=== PATIENT | male | born 1965 | race Caucasian/White ===

== ENCOUNTER 2022-03-08 10:11 | Emergency (ER) | payer BC, SELFPAY ==
[2022-03-08] VITALS (9 sets, daily range): BP systolic 135–142; BP diastolic 99–101; PULSE 72–98; RESP 18; TEMP 36.1; O2SAT 94–98; BMI 29.3
--- NOTE | 2022-03-08 11:49 | CRLHL7_ITS ---
For Patients: As a result of the Century Cures Act, medical imaging exams and procedure reports are released immediately into your electronic medical record. You may view this report before your referring provider. If you have questions, please contact your health care provider. INDICATION: Postop epigastric pain status post Jeremias fundoplication. TECHNIQUE: CT abdomen and pelvis acquired with 99 cc Isovue 3 7 IV contrast. COMPARISON: None. FINDINGS: Lower chest: Unremarkable. Liver: Unremarkable. Normal in size and attenuation. No suspicious masses. Gallbladder and bile ducts: Unremarkable. No stones or inflammation. No biliary dilatation. Pancreas: Unremarkable. No mass or inflammation. Spleen: Unremarkable. Normal in size. No masses. Adrenal glands: Unremarkable. No nodules. Kidneys: Unremarkable. No suspicious masses, stones, or hydronephrosis. GI tract: There are normal and expected postoperative changes from a Jeremias fundoplication. No postoperative complication evident. Entire GI tract including the distal esophagus and stomach are normal in caliber and appearance. Normal appendix. Vasculature: Abdominal aorta is normal in caliber. Mesenteric arteries are patent. Lymph nodes: No lymphadenopathy. Peritoneum/Abdominal Wall: Unremarkable. No sign of mass or infiltration. No free air or significant free fluid. Pelvis: Unremarkable. Bones: Unremarkable for age. IMPRESSION: Normal postoperative changes from a Jeremias fundoplication. No postoperative complications or other acute or specific finding to explain epigastric pain. Please note that all CT scans at this facility use dose modulation, iterative reconstruction, and/or weight-based dosing when appropriate to reduce radiation dose to as low as reasonably achievable. Dictated by Edgardo Baltazar MD @ 03/08/2022 12:53:22 PM (Electronically Signed)
[2022-03-08] MEDS: 0.9 % SODIUM CHLORIDE 1000 ml 1,000 ML IV (12:25)
--- OUTSIDE RECORDS SUMMARY | 2022-03-08 12:25 | XMS_ITS | Clinical Summary ---
:1965 Author Organization [facility] [place] [address] Care Team Providers Name Role Phone Valente Jean MD Primary Care Provider Allergies Active Allergy Reactions Severity Noted Date Comments Ciprofloxacin Throat Swelling/Closing High 11/25/2012 Medications Medication Sig Dispensed Refills Start End Status Date Date atorvastatin (LIPITOR) Take 1 Tablet 90 Tablet 3 08/25/19 Active 20 mg (20 mg) by 22 tabletIndications: mouth at Other hyperlipidemia bedtime. hydroCHLOROthiazide Take 1 Tablet 90 Tablet 3 11/22/19 Active (HCTZ) 25 mg (25 mg) by 22 tabletIndications: mouth once Essential hypertension daily. lisinopriL (PRINIVIL; Take 10 mg by 0 Active ZESTRIL) 10 mg tablet mouth once daily in the evening. omeprazole (PRILOSEC) Take 40 mg by 0 Active 40 mg Delayed-Release mouth two capsule times daily. sertraline (ZOLOFT) Take 150 mg by 0 Active 100 mg tablet mouth once daily. ondansetron (ZOFRAN Place 1-2 30 Tablet 0 02/15/20 Active ODT) 4 mg Tablets (4-8 22 disintegrating mg) on the tabletIndications: tongue every 6 Paraesophageal hiatal hours if hernia needed for Nausea/Vomitin g for up to 30 doses. oxyCODONE (ROXICODONE) Take 1 Tablet 5 Tablet 0 02/18/20 Active 5 mg immediate release (5 mg) by 22 tabletIndications: mouth every 4 Hiatal hernia hours if needed for Pain. methylPREDNISolone Take by mouth 21 Tablet 0 03/03/20 Active (Medrol, Tree,) 4 mg as instructed 22 tabletIndications: per packaging. Post-operative state omeprazole (PRILOSEC) 40 mg twice 180 Capsule 3 08/23/1902/04 Discontinued 40 mg Delayed-Release daily 022 (Pharmacist capsuleIndications: change per Iron deficiency medi cation anemia, unspecified history iron deficiency anemia (E-cancel not type, Hematochezia, sent)) Esophagitis, Polyp of colon, unspecified part of colon, unspecified type medication order 1`06/26/2015 1 unit 0 09/23/19 D iscontinued composerIndications: AHI-12; 022 (Pharmacist CASSIDY (obstructive sleep diagnosis change per apnea) obstructive medicati on sleep apnea history MRD #1 (E-cancel not sent)) sertraline (ZOLOFT) Take 1.5 135 tablet. 3 11/05/19 Discontinued 100 mg Tablets (150 22 022 (Pharma cist tabletIndications: mg) by mouth change per Depression with at bedtime. me dication anxiety history (E-cancel not sent)) lisinopriL (PRINIVIL; Take 1 Tablet 90 Tablet 3 12/17/1902/04 Discontinued ZESTRIL) 10 mg (10 mg) by 022 (Pha rmacist tabletIndications: mouth once change per Essential hypertension daily. medication history (E-cancel not sent)) oxyCODONE (ROXICODONE) Take 1 Tablet 15 Tablet 0 02/15/2020/06 Discontinued 5 mg immediate release (5 mg) by 022 (Reorder tabletIndications: mouth every 6 (E-cancel not Paraesophageal hiatal hours if sent)) hernia needed for Pain. Active Problems Problem Noted Date Other hyperlipidemia 08/24/2021 Adenomatous colon polyp 12/07/2020 Overview: Colonoscopy 12/2020 polyp, repeat in 7 ye ars Essential hypertension 07/31/2018 Chronic GERD 07/31/2018 Overview: EGD 12/202021Grade 3 reflux esophagitis wit h esophageal ulcer, increase omeprazole to 40 mg/day Depression with anxiety 07/31/2018 CASSIDY, 04/25/2016, AHI 12.4 05/02/2016 Insomnia, idiopathic 05/02/2016 Other chest pain Paraesophageal hiatal hernia Encounters Date Type Specialty Care Team Description 02/21/2022 Telemedicine Riana Pastrana Follow Up WISAM Morse 02/21/2022 Travel 02/18/2022 Nurse Triage Valente Jean Face Swelling MD Pedro 02/17/2022 Orders Only Riana Pastrana <No scans jodie ched> WISAM Morse 02/15/2022 Telephone Riana Pastrana Follow Up WISAM Morse 02/14/2022 Anesthesia Event Cortes Cummins MD Sarpal, Edwar Moreno MD 02/14/2022 Surgery Nettie Grady, ROBOTIC TONY SETHI MD PARAESOPHAGEAL HIATAL HERNIORRHAPHY w ith toupet fundopli cation 02/14/2022 Hospital Encounter Nettie Grady, Paraes ophageal hiatal MD hernia (Primary Dx) 02/14/2022 Telephone Nettie Grady, RDC-surgical followup MD 02/13/2022 Travel 02/10/2022 Nurse/Clinic Staff Only Test ing (COVID-19 preop/) 02/10/2022 Travel 02/06/2022 Orders Only Lab, [facility] 02/06/2022 Travel 2022 Preop Visit Valente Jean Pre-Op Exam MD Pedro (Paraesophageal Hiatal Herniorrhaphy, ANW, Dr. Olegario Grady on 02/14/22.) 2022 Travel 01/17/2022 Telephone Nettie Grady, Form (FMLA p [employer]ry[employer] CUELLAR complete) 12/30/2021 Telephone Valente Jean Results MD Pedro 12/29/2021 Procedure Only Cardiac, [facility] Nurse Diagnostic Test ing (Pl[facility]... 12/29/2021 Travel 12/16/2021 Office Visit Valente Jean Medication Ma nagement (3 MD Pedro week follow up for blood pressure); [facility] cation List Update (Wisam sarabia requests remova l of senna, sleep gamboa pplies, cyclobenzaprine ) 12/16/2021 Travel from Last 3 Months Immunizations Name Administration Dates Next Due COVID-19 vaccine (Moderna 100mcg/0.5mL) 07/08/2020, 06/10/19 21 PF, MDV Hepatitis B (Adult) 09/14/2006, 04/27/2006, 03/28/2006 Influenza RIV4 (Age 18+ Years) PRESERV 03/14/2021 FREE Influenza, IIV3 (Age >=3 years) 02/19/2016 Influenza, IIV4 2022 Influenza, IIV4 (=>6mos) MDV 03/05/2018 Family History Medical History Relation Name Comments Heart attack Brother Michael Arthritis Father hip and knee rep lacement Heart attack Maternal Uncle Cancer-ovarian Mother of Ovarian cancer at 63 Stroke Paternal Grandfather Relation Name Status Comments Brother Michael Father Maternal Uncle Mother (Age 63) Paternal Grandfather Social History Tobacco Use Types Packs/Day Years Used Date Never Smoker Smokeless Tobacco: Current User Chew Tobacco Cessation: Ready to Quit: No; Co unseling Given: Yes Alcohol Use Standard Drinks/Week Comments Yes 8 (1 standard drink = 0.6 oz pure alcoho l) 8-10 beers a week Alcohol Habits Answer Date Recorded How often do you have a drink containing alcohol? Not asked How many drinks containing alcohol do you have on a Not aske d typical day when you are drinking? How often do you have six or more drinks on one Not asked occasion? Comment: 8-10 beers a week 11/25/2012 Sex Assigned at Date Recorded Not on file COVID-19 Exposure Response Date Recorded In the last 10 days, have you been in contact with No / Unsu re 02/21/2022 8:54 AM CDT someone who was confirmed or suspected to have Coronavirus/COVID-19? Obstetrics History Last Filed Vital Signs Vital Sign Reading Time Taken Comments Blood Pressure 155/90 02/14/2022 5:30 PM CDT Pulse 82 02/14/2022 5:45 PM CDT Temperature 36 ??C (96.8 ??F) 02/14/2022 5:30 PM CDT Respiratory Rate 16 02/14/2022 5:30 PM CDT Oxygen Saturation 95% 02/14/2022 5:45 PM CDT Inhaled Oxygen Concentration - - Weight 94.8 kg (209 lb) 02/14/2022 9:00 AM CDT Height 177.8 cm (5' 10) 02/14/2022 9:00 AM CDT Body Mass Index 29.99 02/14/2022 9:00 AM CDT Plan of Treatment Health Maintenance Due Date Last Done Comments Tdap 1978 Tetanus booster 1987 Zoster (shingles) series for age 0902/01/2017 50+ (1 of 2) COVID-19 vaccine series (4 - 06/07/2021 04/12/2021, 021, Booster for Moderna series) 06/10/2020 Depression screening for age 12+ 11/04/2022 11/04/2021, 04/2021, 09/24/2019, Additional history exists BMI (ht and wt on same day) for 2023 2022, 08/05, age 18+ 07/31/2018, Additional history exists Lipids for age 45-75 2027 2022, 08/22/2021, 08/27/2020, Additional history exists Colonoscopy through age 75 12/06/2030 12/06/2020, Hepatitis C screening for age Completed 11/17/2021 18-79 Influenza for age 50-64 Completed 2022, 03/14/2021, 03/05/2018, Additional history exists Procedures Procedure Name Priority Date/Time Associated Comments Diagnosis ENDOTRACHEAL TUBE Routine 02/14/2022 12:11 Result s for this PM CDT procedure are i n the results section. ENDOTRACHEAL TUBE Routine 02/14/2022 12:11 Result s for this PM CDT procedure are i n the results section. OR IMAGE CAPTURE Routine 02/14/2022 11:48 AM CDT ROBOTIC ASSISTED Tier 3 02/14/2022 10:40 Esophagitis PARAESOPHAGEAL HIATAL AM CDT HERNIORRHAPHY XI Case Notes BOP vs outpatient surgery (p t lives 1 hr away) SCAN-CARDIAC STRIP 02/14/2022 12:00 Resul ts for this AM CDT procedure are i n the results section. COVID 19 Routine 02/10/2022 4:00 PM Pre-op exam Results f or this CDT procedure are i n the results section. COVID 19 COLLECTION Routine 02/10/2022 4:00 PM Pre-op exam Re sults for this CDT procedure are i n the results section. LIPID PANEL W REFLEX Routine 2022 4:49 PM Other hyperlip idemia Results for this MEASURED LDL CDT procedure are i n the results section. CBC WITH AUTO Routine 2022 4:49 PM Preoperative general Results for this DIFFERENTIAL CDT physical examination procedu re are in the results section. CBC WITH AUTO Routine 2022 4:49 PM Preoperative general Results for this DIFFERENTIAL CDT physical examination procedu re are in the results section. BASIC METABOLIC Routine 2022 4:49 PM Essential hypertens ion Results for this PANEL CDT procedure are i n the results section. GA CV STRS TST Routine 12/29/2021 12:00 Essential hyper tension Results for this XERS&/OR RX CONT ECG AM CDT Chest press ure procedure are in W/SI&R Fam hx-ischem heart the resu lts disease section. BASIC METABOLIC Routine 12/16/2021 10:14 Essential hypertensio n Results for this PANEL AM CDT procedure are i n the results section. from Last 3 Months Results HCHG TUBE PR1, HCHG STYLET PR1 (02/14/2022 12:11 PM CDT) Narrative Mychal Crow Jr., CRNA - 02/14/2022 12:11 PM CDT Mychal Crow Jr., CRNA ? 02/14/2022 12:19 PM Procedure: ETT Patient location during procedure: OR ETT Properties Final Technique: rapid sequence inductio n, cricoid pressure and direct laryngoscopy Type: straight Location: oral Cuffed: yes Tube Size: 7.5 mm Stylet: yes Laryngoscope Blade: Mac Blade Size: 4 Cormack-Lehane Grade View: 1 Insertion Attempts: 1 Placement Verification: auscultation, en d tidal CO2 and symmetrical chest wall movement Assessment: pharynx clear, atraumatic an d dentition unchanged Secured at: 22 Measured From: lips Difficulty: 0 (not difficult) Electronically signed by Keshav Yanez CRNA ? Edwar Garcia MD ANESTHESIA PX NOTE ORDERABLE S SCAN-CARDIAC STRIP (02/14/2022 12:00 AM CDT) Narrative 02/14/2022 12:00 AM CDT This result has an attachment that is no t available. Ordered by an unspecified provider. Other Clinical Staff OTHER COVID 19 (02/10/2022 4:00 PM CDT) Analysis Performed At [facility] Time Signature COVID 19 Negative Negative 02/11/2022 [facility] 7:38 PM CDT [facility] Specimen Anatomical Location / Collection Method Collection Cheko e Received Time (Source) Laterality / Volume Other SPECIMEN FROM Non-Blood / 02/10/2022 4:00 02/11/2022 NASOPHARYNGEAL Unknown PM CDT 11:22 AM CDT STRUCTURE / Unknown Narrative [facility] LABORATORY-CENTRAL LABORAT ORY - 02/11/2022 7:38 PM CDT All PCR tests are subject to false negative result due to variability in viral load and collection te chnique. A negative result does not rule out a SARS-CoV-2 infection. Clinical correlation required. This test has been authorized by FDA und er an Emergency Use Authorization (EUA). This test is only authorized for the duration of time the declaration that circumstances exist justifying the authorizati on of the emergency use of in vitro diag nostic tests for detection of SARS-CoV-2 virus and/or diagnosis of COVID-19 infection under section 564(b)(1) of the Act, 21 U.S.C. 360bbb-3(b) (1), unless the authorization is terminated or revoked sooner. Nettie Grady MD MICROBIOLOGY Performing Organization Address City/State/ZIP Code Phon e Number [facility] [address] [place] [address] LABORATORY-CENTRAL 2000 LABORATORY COVID 19 COLLECTION (02/10/2022 4:00 PM CDT) [facility] Method Time Signature TESTING [facility] 02/11/2022 [facility] LABORATORY Laboratory 11:29 AM LABORATORY-CE CDT NTRAL LABORATORY Comment: Specimen submitted to [facility] Laboratory for testing. Specimen Anatomical Location / Collection Method Collection Cheko e Received Time (Source) Laterality / Volume Other SPECIMEN FROM Non-Blood / 02/10/2022 4:00 02/10/2022 4:06 NASOPHARYNGEAL Unknown PM CDT PM CDT STRUCTURE / Unknown Nettie Grady MD SEND OUTS Performing Organization Address City/State/ZIP Code Phon e Number [facility] [address] [place] [address] LABORATORY-CENTRAL 2000 LABORATORY (ABNORMAL) CBC WITH AUTO DIFFERENTIAL (2022 4:49 PM CDT) [facility] Method Time Signature WHITE BLOOD 9.6 4.5 - 2022 [facility] COUNT 11.0 4:56 PM CDT [facility]/ CLINIC mm RED BLOOD COUNT 5.06 4.30 - 2022 [facility] 5.90 4:56 PM CDT [facility] CLINIC HEMOGLOBIN 14.7 13.5 - 2022 [facility] 17.5 g/dL 4:56 PM CDT [facility] HEMATOCRIT 43.0 37.0 - 2022 [facility] 53.0 % 4:56 PM CDT [facility] MCV 85 80 - 100 2022 [facility] fL 4:56 PM CDT [facility] MCH 29.1 26.0 - 2022 [facility] 34.0 pg 4:56 PM CDT [facility] MCHC 34.2 32.0 - 2022 [facility] 36.0 g/dL 4:56 PM CDT [facility] RDW 17.6 (H) 11.5 - 2022 [facility] 15.5 % 4:56 PM CDT [facility] PLATELET COUNT 228 140 - 440 2022 [facility] thou/cu 4:56 PM CDT [facility] CLINIC MPV 10.0 6.5 - 2022 [facility] 11.0 fL 4:56 PM CDT [facility] % NEUT 74.4 % 2022 [facility] 4:56 PM CDT [facility] % LYMPH 15.7 % 2022 [facility] 4:56 PM CDT [facility] % MONO 7.0 % 2022 [facility] 4:56 PM CDT [facility] % EOS 2.5 % 2022 [facility] 4:56 PM CDT [facility] % BASO 0.4 % 2022 [facility] 4:56 PM CDT [facility] ABSOLUTE 7.1 (H) 1.7 - 7.0 2022 [facility] NEUTROPHILS thou/cu 4:56 PM CDT [facility] CLINIC ABSOLUTE 1.5 0.9 - 2.9 2022 [facility] LYMPHOCYTES thou/cu 4:56 PM CDT [facility] ABSOLUTE 0.7 <0.9 2022 [facility] MONOCYTES thou/cu 4:56 PM CDT [facility] CLINIC ABSOLUTE 0.2 <0.5 2022 [facility] EOSINOPHILS thou/cu 4:56 PM CDT [facility] ABSOLUTE 0.0 <0.3 2022 [facility] BASOPHILS thou/cu 4:56 PM CDT [facility] Specimen Anatomical Collection Method / Collection Time Recei magdaleno Time (Source) Location / Volume Laterality Blood BLOOD SPECIMEN / Venipuncture / 2022 4:49 2021 4:51 Unknown Unknown PM CDT PM CDT Valente Jean MD HEMATOLOGY Performing Organization Address City/State/ZIP Code Phon e Number [facility] [address] [place] [address] (ABNORMAL) LIPID PANEL W REFLEX MEASURED LDL (2022 4:49 PM CDT) [facility] Method Time Signature CHOLESTEROL,TOTAL 209 (H) 100 - 199 02/02/2022 [facility] mg/dL 4:45 PM CDT [facility] TRIGLYCERIDES 140 <150 02/02/2022 [facility] mg/dL 4:45 PM CDT [facility] HDL CHOLESTEROL 72 >40 mg/dL 02/02/2022 [facility] 4:45 PM CDT [facility] NON-HDL 137 <145 02/02/2022 [facility] CHOLESTEROL mg/dl 4:45 PM CDT [facility] CHOL/HDL RATIO 2.90 <4.50 02/02/2022 [facility] 4:45 PM CDT [facility] LDL CHOLESTEROL 109 <=130 02/02/2022 [facility] mg/dL 4:45 PM CDT [facility] VLDL CHOLESTEROL 28 <=30 02/02/2022 [facility] mg/dL 4:45 PM CDT [facility] PROVIDER ORDERED RANDOM 02/02/2022 [facility] STATUS 4:45 PM CDT [facility] Specimen Anatomical Collection Method / Collection Time Recei magdaleno Time (Source) Location / Volume Laterality Blood BLOOD SPECIMEN / Venipuncture / 2022 4:49 2021 4:51 Unknown Unknown PM CDT PM CDT Valente Jean MD CHEMISTRY Performing Organization Address City/State/ZIP Code Phon e Number [facility] [address] [place] [address] LAB[facility]ATORY[facility] [address] LABORATORY [facility] [address] [place], [place] [address], CLINIC (ABNORMAL) BASIC METABOLIC PANEL (2022 4:49 PM CDT)Only the most recent of 2 resultswithin the time period is included. P athologist Signature SODIUM 138 135 - 145 02/02/2022 [facility] mmol/L 4:43 PM CDT [facility] POTASSIUM 4.0 3.5 - 5.0 02/02/2022 [facility] mmol/L 4:43 PM CDT [facility] CHLORIDE 104 98 - 110 02/02/2022 [facility] mmol/L 4:43 PM CDT [facility] CO2,TOTAL 25 21 - 31 02/02/2022 [facility] mmol/L 4:43 PM CDT [facility] ANION GAP 9 5 - 18 02/02/2022 [facility] 4:43 PM CDT [facility] GLUCOSE 100 65 - 100 02/02/2022 [facility] mg/dL 4:43 PM CDT [facility] CALCIUM 9.7 8.5 - 10.5 02/02/2022 [facility] mg/dL 4:43 PM CDT [facility] BUN 12 8 - 25 02/02/2022 [facility] mg/dL 4:43 PM CDT [facility] CREATININE 1.10 0.72 - 02/02/2022 [facility] 1.25 mg/dL 4:43 PM CDT [facility] BUN/CREAT RATIO 11 10 - 20 02/02/2022 [facility] 4:43 PM CDT [facility] eGFR 79 (L) >90 02/02/2022 [facility] mL/min/1.7 4:43 PM CDT [facility] 3m2 TRAL LABORATORY Comment: As of 2021, eGFR is calcu lated by the CKD-EPI creatinine equation without race adjustment. eGFR can be inf luenced by muscle mass, exercise, and diet. The reported eGFR is an estimation only and is only applicable if the renal function is stable. Specimen Anatomical Collection Method / Collection Time Recei magdaleno Time (Source) Location / Volume Laterality Blood BLOOD SPECIMEN / Venipuncture / 2022 4:49 2021 4:51 Unknown Unknown PM CDT PM CDT Valente Jean MD CHEMISTRY Performing Organization Address City/State/ZIP Code Phon e Number [facility] [address] [place] [address] [address] LABORATORY-CEN[facility] [address] LABORATORY [place] CV STRS TST XERS&/OR RX CONT ECG W/SI&R (12/29/2021 12:00 AM CDT) Narrative This result has an attachment that is no t available. Beatriz William DO PB - CARDIOVASCULAR SYSTEM S ERVICES from Last 3 Months Insurance Payer Benefit Plan / Subscriber ID Effective Dates Phone Addre ss Type Group BLUE [employer] [id number] 2020-Present [address] [address] [place] [address] Advance Directives Documents on File Type Date Recorded Patient City Surveyor Explanati on Healthcare Directive 11/24/2020 11/24/2020 Latest Code Status on File Code Status Date Activated Date Inactivated Comments Full Code 02/14/2022 8:51 AM 02/14/2022 9:05 PM Code Status Discussion: Unable to Assess Preferences, Provid er to review later Care Teams Lobbyist Relationship Specialty Start Date End Date Valente Jean MD PCP - General Family Practice 07/22/18 [address] [place] [address]
[2022-03-08 12:27] LABS: Basophils Absolute Auto 0.04 K/uL (0.00-0.30); Basophils Percent Auto 0.4 % (0.0-3.0); Eosinophils Absolute Auto 0.11 K/uL (0.00-0.50); Hematocrit 44.3 % (37.0-53.0); Hemoglobin* 15.1 gm/dL (13.5-17.5); Immature Granulocytes Abs Auto 0.03 K/uL (0.00-0.30); Lymphocytes Percent Auto 10.3 % (20-44); Mean Corpuscular HGB Conc 34 gm/dL (32-36); Mean Corpuscular Hemoglobin 29 pg (26-34); Mean Corpuscular Volume 85 fL (80-100); Monocytes Percent Auto 7.3 % (0.0-11.0); Neutrophils Percent Auto 80.7 % (42.0-72.0); Platelet Count* 216 K/uL (140-440); RDW Coefficient of Variation % 13.8 % (11.5-15.5); Red Blood Count 5.22 m/uL (4.30-5.90); White Blood Count* 10.91 K/uL (4.50-11.00)
[2022-03-08 12:28] LABS: Slide Review Reflex No
[2022-03-08 12:32] LABS: Albumin* 4.9 g/dL (3.3-5.0)
[2022-03-08 12:33] LABS: Chloride* 99 mmol/L (96-114); Potassium* 3.8 mmol/L (3.6-5.1); Sodium* 134 mmol/L (135-149)
[2022-03-08 12:35] LABS: Creatinine* 0.9 mg/dL (0.5-1.5); Est. Creatinine Clearance* 95.76; Estimated Glomerular Filt Rate 101 ml/min
[2022-03-08 12:36] LABS: Alanine Aminotransferase* 42 U/L (4-50); Alkaline Phosphatase* 161 U/L (40-150); Aspartate Amino Transferase* 40 U/L (12-35); Bilirubin Direct* 0.1 mg/dL (0.0-0.5); Blood Urea Nitrogen* 27 mg/dL (7-30); Calcium* 9.6 mg/dL (8.4-10.6); Carbon Dioxide* 26 mmol/L (20-32); Glucose* 110 mg/dL (60-115); Lipase* 123 U/L (23-300)
[2022-03-08 12:45] LABS: NT Pro B Type NatriureticPept* 54 PG/mL (0-125)
[2022-03-08 12:48] LABS: C Reactive Protein* < 0.5 mg/dL (0.5-1.0)
[2022-03-08 12:51] LABS: Troponin I* < 0.01 ng/mL (0.01-0.04)
--- NOTE | 2022-03-08 13:41 | ED.ABDPAIN ---
HPI - Abdominal Pain General Chief Complaint: Abdominal Pain Stated Complaint: Post-op pain under diaphragm Time Seen by Provider: 03/08/22 11:35 History of Present Illness HPI narrative: 57-year-old man presenting to the emergency department 3 weeks status post Jeremias fundoplication and repair of hiatal hernia he says. Apparently things went well. His reflux is markedly less but he just has no appetite. He did vomit 3 days ago. Today very concerning though was in class about 2-1/2 hours prior to arrival in the emergency department, I was seeing him about 3 hours later, he had had fairly abrupt onset of intense achy pain in the epigastrium spreading around both ribs resulting also diaphoresis. He was not able to relieve it lasted about 35-45 minutes. Is now relatively symptom free. He is worried about being dehydrated. Apparently they called the nurse line of the affiliated surgical clinic and were recommended to be seen they had concerns of possible suture disruption. The concerns are also expressed to them about postoperative gas distention. Has not had any fever. No diarrhea frankly is constipated. Had rather harder difficult stool this morning but otherwise does not recall call the last stool since surgery. Has been belching a good deal. Related Data Home Medications Medication Instructions Recorded Confirmed atorvastatin 20 mg tablet mg 03/08/22 hydrochlorothiazide 25 mg tablet mg 03/08/22 lisinopril 10 mg tablet mg 03/08/22 lisinopril 5 mg tablet mg 03/08/22 methylprednisolone 4 mg tablets in mg 03/08/22 a dose pack omeprazole 40 mg capsule,delayed mg 03/08/22 release ondansetron 4 mg disintegrating mg 03/08/22 tablet sertraline 100 mg tablet mg 03/08/22 Allergies Allergy/AdvReac Type Severity Reaction Status Date / Time ciprofloxacin [From Cipro] Allergy Verified 03/08/22 12:17 Review of Systems Status of ROS Reports: 10 or more systems reviewed and unremarkable except as noted in History and below PFSH PFS Social History Smoking Status: Never smoker Do you use any of these nicotine containing products: None Second hand tobacco smoke exposure: No How often do you have a drink containing alcohol: 2-3 times a week How many standard drinks containing alcohol do you have on a typical day: 3 or 4 How often do you have six or more drinks on one occasion: Never AUDIT-C Alcohol total score: 4 Non-prescribed substance use: denies use Exam Narrative: Exam Narrative: Pleasant. Seems mildly anxious, uncomfortable. Mildly labored in his breathing as if it might be causing a little discomfort. Lungs are clear. Oropharynx is dry but not exactly moist either. No erythema. Symmetrical. Neck is supple. There is no supraclavicular or regional crepitus. A little tender to palpation in the epigastrium. Abdomen is soft otherwise. No masses appreciated. Extremities are without edema. Well perfused. Cardiovascular little elevated rate but regular rhythm. No MR Estella appreciated. Const: Vital Signs, click to edit/add: Vital Signs - 24 hr 03/08/22 13:00 03/08/22 13:01 03/08/22 13:02 Pulse Rate 81 79 73 Blood Pressure 142/101 H Pulse Oximetry 96 96 96 03/08/22 13:30 03/08/22 13:32 Pulse Rate 78 Blood Pressure 142/100 H Pulse Oximetry 98 Documenting provider has reviewed patient's vital signs: yes Course Course Hospital Course: Initiated IV fluid. Labs were unremarkable. CT imaging was reviewed by me and confirmed by Radiology to be unremarkable other than expected postoperative changes. Mr. Machado and spouse appeared reassured. She reminded him that he had been told it might take a year to feel like things are back to normal. Vital Signs Vital signs: Initial Vital Signs Temperature 97.0 F L 03/08/22 11:11 Temperature Source Temporal Artery Scan 03/08/22 11:11 Pulse Rate 98 03/08/22 11:11 Respiratory Rate 18 03/08/22 11:11 Blood Pressure 135/99 H 03/08/22 11:11 Blood Pressure Mean 111 03/08/22 11:11 Blood Pressure Position Sitting 03/08/22 11:11 Pulse Oximetry 98 03/08/22 11:11 Oxygen Delivery Method 03/08/22 11:11 Vital Signs Temperature 97.0 F L 03/08/22 11:11 Pulse Rate 98 03/08/22 11:11 Respiratory Rate 18 03/08/22 11:11 Blood Pressure 135/99 H 03/08/22 11:11 Pulse Oximetry 98 03/08/22 11:11 Oxygen Delivery Method 03/08/22 11:11 Temperature 97.0 F L 03/08/22 11:11 Pulse Rate 78 03/08/22 13:30 Respiratory Rate 18 03/08/22 11:11 Blood Pressure 142/100 H 03/08/22 13:32 Pulse Oximetry 98 03/08/22 13:30 Oxygen Delivery Method 03/08/22 11:11 MDM - Abdominal Pain Medical Records Attestation: I reviewed the patient's medical records. Lab Data Attestation: I reviewed the patient's lab results. Labs: Lab Results 03/08/22 03/08/22 03/08/22 Range/Units 11:50 12:00 12:00 WBC 10.91 (4.50-11.00) K/uL RBC 5.22 (4.30-5.90) m/uL Hgb 15.1 (13.5-17.5) gm/dL Hct 44.3 (37.0-53.0) % MCV 85 (80-100) fL MCH 29 (26-34) pg MCHC 34 (32-36) gm/dL RDW Coeff of Marlena 13.8 (11.5-15.5) % Plt Count 216 (140-440) K/uL Neut % (Auto) 80.7 H (42.0-72.0) % Lymph % (Auto) 10.3 L (20-44) % Republic % (Auto) 7.3 (0.0-11.0) % Eos % (Auto) 1.0 (0.0-7.0) % Baso % (Auto) 0.4 (0.0-3.0) % Neut # (Auto) 8.80 H (1.7-7.0) K/uL Lymph # (Auto) 1.10 (0.90-2.90) K/uL Republic # (Auto) 0.80 (0.00-0.90) K/UL Eos # (Auto) 0.11 (0.00-0.50) K/uL Baso # (Auto) 0.04 (0.00-0.30) K/uL Abs Immat Gran (auto) 0.03 (0.00-0.30) K/uL Imm/Tot Granulo (auto) Not Reportable Sodium 134 L (135-149) mmol/L Potassium 3.8 (3.6-5.1) mmol/L Chloride 99 (96-114) mmol/L Carbon Dioxide 26 (20-32) mmol/L BUN 27 (7-30) mg/dL Creatinine 0.9 (0.5-1.5) mg/dL Estimated Creat Clear 95.76 Estimated GFR 101 ml/min Glucose 110 (60-115) mg/dL Calcium 9.6 (8.4-10.6) mg/dL Total Bilirubin 1.0 (0.1-1.5) mg/dL Direct Bilirubin 0.1 (0.0-0.5) mg/dL AST 40 H (12-35) U/L ALT 42 (4-50) U/L Alkaline Phosphatase 161 H (40-150) U/L Troponin I < 0.01 L (0.01-0.04) ng/mL C-Reactive Protein < 0.5 L (0.5-1.0) mg/dL NT-Pro-B Natriuret Pep 54 (0-125) PG/mL Total Protein 8.0 (6.0-8.3) g/dL Albumin 4.9 (3.3-5.0) g/dL Lipase 123 (23-300) U/L POC Troponin I 0.00 L (0.01-0.04) ng/ml Discharge Plan Discharge Clinical Impression: Post-operative pain, Constipation, Epigastric pain Patient Disposition: Home w/ Parent or Adult Condition: Stable Additional Instructions: Continue to focus on hydration. You need to at least push fluids regardless of how you are feeling; referring to you saying you have no appetite. I would take your constipation pills a couple of times a day. Over the next few days I would also take 2 or 3 dosings of MiraLax equivalent in the morning -- each dose is to be diluted in in at least 8 oz of liquid. You might also take a senna tablet 1 or 2 times daily for a few days as they help with bowel squeeze. Return for persistent and increased abdominal pain, repeated vomiting, fever. Prescriptions: No Action atorvastatin 20 mg tablet sertraline 100 mg tablet omeprazole 40 mg capsule,delayed release(DR/EC) lisinopril 10 mg tablet lisinopril 5 mg tablet hydrochlorothiazide 25 mg tablet methylprednisolone 4 mg tablets,dose pack ondansetron 4 mg tablet,disintegrating Follow Up/Referrals: Valente Jean MD [Primary Care Provider] - Stand Alone Forms: [employer] Info Instructions
== END 2022-03-08 13:45 | disposition home or self-care (01) ==
PROVIDERS: Emergency Provider Family Medicine; PCP Family Medicine
DX: G89.18 Other acute postprocedural pain (principal); K59.00 Constipation, unspecified
CPT/HCPCS: 36415; 74177; 80048; 80076; 83690; 83880; 84484; 85025; 86140; 93005; 99284; 99285; J7030; Q9967